=== PATIENT | female | born 1970 | race Caucasian/White ===

== ENCOUNTER → 2022-12-07 | Outpatient (CLI) | payer BC ==
--- NOTE | 2022-12-08 18:53 | MM ---
Reason for Exam: Screening (asymptomatic). Baseline mammogram. Patient History: Menarche at age 12. Mother had breast cancer. Last menstrual period: 09/09/2022 Risk Values: Lisa 5 year model risk: 2.1%. NCI Lifetime model risk: 17.2%. Prior Study Comparison: Patient's first Mammogram. No prior studies available for comparison. Tissue Density: There are scattered fibroglandular densities. Findings: Analyzed By CAD. Global asymmetry central left cc view. Some loosely grouped secretory calcifications also present 12:00 central left breast. Bilateral subareolar densities are present. No significant mass, suspicious microcalcification, or other discrete abnormality is seen. Overall Assessment: Benign, BI-RAD 2 Management: Screening Mammogram of both breasts in 1 year. . Patient should continue monthly self-breast exams. A clinical breast exam by your physician is recommended on an annual basis. This exam should not preclude additional follow-up of suspicious palpable abnormalities. Note on Lisa scores and lifetime risk: 1. A Lisa score greater than 3% is considered moderate risk. If this is the case, consider specialist referral to assess eligibility for a risk reducing agent. 2. If overall lifetime risk for the development of breast cancer is 20% or higher, the patient may qualify for future screening with alternating mammogram and breast MRI. Electronically signed and approved by: Mark Fam M.D. Radiologist
== END | disposition home or self-care (01) ==
LOC: RADMAMWWP 11:17
PROVIDERS: ATTEND Family Medicine
DX: Z12.31 Encounter for screening mammogram for malignant neoplasm of breast (principal); Z80.3 Family history of malignant neoplasm of breast
CPT/HCPCS: 77063; 77067

== ENCOUNTER → 2023-03-12 | Outpatient (CLI) | payer BC ==
--- NOTE | 2023-03-12 08:44 | CT ---
EXAMINATION TYPE: CT hand RT wo con DATE OF EXAM: 03/12/2023 COMPARISON: None HISTORY: 53-year-old female M89.9, arthritis/bone disorder, right fifth digit TECHNIQUE: Contiguous axial scanning of the right hand without IV contrast. Coronal and sagittal diana nstructions performed. 3-D reconstructions generated on a dedicated independent workstation. CT DLP: 171.1 mGycm Automated exposure control for dose reduction was used. FINDINGS: No acute fracture, subluxation, or dislocation. There is severe degenerative change at the fifth DIP joint with erosion of the subchondral bone and secondary slight radial angulation. No soft tissue erickson cifications. No marginal or juxta-articular erosions. There is a punctate 2 mm density along the palm ar aspect of the first CMC joint suggesting a tiny loose body. Otherwise, no soft tissue calcificatio ns are seen. No obvious joint effusion or significant tenosynovial fluid. No acute fracture, subluxa tion, dislocation. IMPRESSION: 1. SEVERE fifth DIP joint OA. The bone on bone changes results in erosion of the subchondral bone wilfredo te. 2. No marginal erosions, tenosynovitis, or soft tissue calcifications to clearly support an inflammat ory arthropathy. Further clinical correlation recommended.
== END | disposition home or self-care (01) ==
LOC: RADCTMAIN 07:02
PROVIDERS: ATTEND Family Medicine
DX: M19.041 Primary osteoarthritis, right hand (principal); M89.9 Disorder of bone, unspecified

== ENCOUNTER → 2023-12-21 | Outpatient (CLI) | payer BC ==
--- NOTE | 2023-12-21 20:37 | MM ---
Reason for Exam: Screening (asymptomatic). Last screening mammogram was performed 12 month(s) ago. Patient History: Menarche at age 12. Patient has no children. Mother had breast cancer. Last menstrual period: 02/18/2023 Risk Values: Lsia 5 year model risk: 2.3%. NCI Lifetime model risk: 17.8%. Prior Study Comparison: 12/07/2022 Bilateral MG 3D screening mammo w/cad, [facility]. Tissue Density: There are scattered areas of fibroglandular density. Findings: Analyzed By CAD. Unchanged centrally located global asymmetry left breast with some small secretory calcifications. Unchanged asymmetric density subareolar right breast on the CC view. There is no suspicious group of microcalcifications or new suspicious mass in either breast. Overall Assessment: Benign, BI-RAD 2 Management: Screening Mammogram of both breasts in 1 year. . Patient should continue monthly self-breast exams. A clinical breast exam by your physician is recommended on an annual basis. This exam should not preclude additional follow-up of suspicious palpable abnormalities. Note on Lisa scores and lifetime risk: 1. A Lisa score greater than 3% is considered moderate risk. If this is the case, consider specialist referral to assess eligibility for a risk reducing agent. 2. If overall lifetime risk for the development of breast cancer is 20% or higher, the patient may qualify for future screening with alternating mammogram and breast MRI. Electronically signed and approved by: Mark Fam M.D. Radiologist
== END | disposition home or self-care (01) ==
LOC: RADMAMWWP 08:21
PROVIDERS: ATTEND Family Medicine
DX: Z12.31 Encounter for screening mammogram for malignant neoplasm of breast (principal); Z80.3 Family history of malignant neoplasm of breast
CPT/HCPCS: 77063; 77067

== ENCOUNTER → 2024-12-21 | Outpatient (CLI) | payer BC ==
--- NOTE | 2024-12-21 09:23 | MM ---
Reason for Exam: Screening (asymptomatic). Last screening mammogram was performed 12 month(s) ago. Patient History: Menarche at age 12. Patient has no children. Mother had breast cancer. Risk Values: Lisa 5 year model risk: 2.4%. NCI Lifetime model risk: 17.5%. Prior Study Comparison: 12/07/2022 Bilateral MG 3D screening mammo w/cad, [facility]. 12/21/2023 Bilateral MG 3D screening mammo w/cad, [facility]. Tissue Density: The breasts are heterogeneously dense, which may obscure small masses. Findings: Analyzed By CAD. There are some tiny benign-appearing round and linear calcifications bilaterally redemonstrated. There are 2 groups of increasing indeterminate calcifications in the left breast. Overall Assessment: Incomplete: need additional imaging evaluation, BI-RAD 0 Management: Diagnostic Mammogram of the left breast. Advised spot magnification two sites and 3-D true lateral views left breast. Patient should continue monthly self-breast exams. A clinical breast exam by your physician is recommended on an annual basis. This exam should not preclude additional follow-up of suspicious palpable abnormalities. Note on Lisa scores and lifetime risk: 1. A Lisa score greater than 3% is considered moderate risk. If this is the case, consider specialist referral to assess eligibility for a risk reducing agent. 2. If overall lifetime risk for the development of breast cancer is 20% or higher, the patient may qualify for future screening with alternating mammogram and breast MRI. [facility], , 12/21/2024 9:20 AM. Electronically signed and approved by: Parker Goodwin M.D.
== END | disposition home or self-care (01) ==
LOC: RADMAMWWP 08:37
PROVIDERS: ATTEND Family Medicine
DX: Z12.31 Encounter for screening mammogram for malignant neoplasm of breast (principal); R92.333 Mammographic heterogeneous density, bilateral breasts; R92.1 Mammographic calcification found on diagnostic imaging of breast; Z80.3 Family history of malignant neoplasm of breast
CPT/HCPCS: 77063; 77067

== ENCOUNTER → 2024-12-22 | Outpatient (CLI) | payer BC ==
--- NOTE | 2024-12-22 08:28 | MM ---
Reason for Exam: Additional evaluation requested from abnormal screening. Last screening mammogram was performed less than 1 month ago. Patient History: Menarche at age 12. Patient has no children. Mother had breast cancer. Risk Values: Lisa 5 year model risk: 2.4%. NCI Lifetime model risk: 17.5%. Prior Study Comparison: 12/07/2022 Bilateral MG 3D screening mammo w/cad, [facility]. 12/21/2023 Bilateral MG 3D screening mammo w/cad, [facility]. 12/21/2024 Bilateral MG 3D screening mammo w/cad, [facility]. Tissue Density: Left: The breasts are heterogeneously dense, which may obscure small masses. Findings: Analyzed By CAD. A group of benign-appearing small round calcifications inferior Left breast is seen on additional views. Small benign-appearing round and linear calcification left breast upper outer aspect middle depth on additional views. No definitive suspicious new group of microcalcifications. Overall Assessment: Benign, BI-RAD 2 Management: Screening Mammogram of both breasts in 1 year. Return to routine follow-up. Results were given to the patient verbally at the time of exam. Patient should continue monthly self-breast exams. A clinical breast exam by your physician is recommended on an annual basis. This exam should not preclude additional follow-up of suspicious palpable abnormalities. Note on Lisa scores and lifetime risk: 1. A Lisa score greater than 3% is considered moderate risk. If this is the case, consider specialist referral to assess eligibility for a risk reducing agent. 2. If overall lifetime risk for the development of breast cancer is 20% or higher, the patient may qualify for future screening with alternating mammogram and breast MRI. [facility], , 12/22/2024 8:25 AM. Electronically signed and approved by: Parker Goodwin M.D.
== END | disposition home or self-care (01) ==
LOC: RADMAMWWP 07:57
PROVIDERS: ATTEND Family Medicine
DX: R92.8 Other abnormal and inconclusive findings on diagnostic imaging of breast (principal); R92.332 Mammographic heterogeneous density, left breast; R92.1 Mammographic calcification found on diagnostic imaging of breast; Z80.3 Family history of malignant neoplasm of breast
CPT/HCPCS: 77061; 77065